=== PATIENT | male | born 2000 | race Caucasian/White ===

== ENCOUNTER 2022-05-31 01:36 | Emergency (ER) | payer OTHER, SELFPAY ==
[2022-05-31 01:37] VITALS: BP 144/79; PULSE 124; RESP 18; TEMP 37.3; O2SAT 100
[2022-05-31] MEDS: IBUPROFEN 400 MG TABLET 800 MG PO (02:20)
--- NOTE | 2022-05-31 02:29 | ED.URI ---
HPI - URI/Sore Throat General Chief Complaint: Upper Respiratory Infection Stated Complaint: sore throat Time Seen by Provider: 05/31/22 01:44 Source: patient Mode of arrival: ambulatory Limitations: no limitations History of Present Illness HPI Narrative: 21-year-old male presents today with history of sore throat and swelling noted this evening around 11:00. Patient denies any fevers, body aches, chills. Denies any sick contacts. Denies cough, runny nose. Patient able to drink fluids without issue. Denies any shortness of breath, difficulty swallowing or inability to swallow own saliva. Related Data Allergies Allergy/AdvReac Type Severity Reaction Status Date / Time fluticasone Allergy Unknown Anaphylactic Verified 03/31/18 13:11 Shock No Known Allergies Allergy Unknown Verified 03/31/18 13:11 Review of Systems Review of Systems: CONSTITUTIONAL: Denies fever, chills, or sweats. EYES: Denies visual changes, redness, or discharge. ENT: Sore throat, tonsil swelling. Denies rhinorrhea, congestion, or otalgia. CARDIOVASCULAR: Denies chest pain, palpitations, or edema. RESPIRATORY: Denies cough or dyspnea. GASTROINTESTINAL: Denies abdominal pain, nausea, vomiting, or diarrhea. . [facility] Social History Social History (Updated 05/31/22 @ 02:31 by Alicia Simons, [employer]) Smoking status: Current every day smoker Tobacco type: cigarettes Alcohol intake: current Substance use: current Substance use type: marijuana Exam Narrative: GENERAL: Well-appearing, well-nourished, and in no acute distress. HEAD: Normocephalic, atraumatic. EYES: PERRLA and EOMI. ENT: Nares clear, no rhinorrhea or epistaxis. Mucous membranes moist. Oropharynx tonsils +3 with exudate. Uvula midline without erythema or swelling. Bilateral TMs pearly mcgarry effusions noted NECK: Supple. No adenopathy or masses. CHEST: Clear to auscultation. No respiratory distress. No wheezes rales or rhonchi HEART: Regular rate and rhythm. No murmur heard. Normal peripheral pulses. Course Vital Signs Vital signs: Vital Signs Temperature 99.1 F 05/31/22 01:37 Pulse Rate 124 H 05/31/22 01:37 Respiratory Rate 18 05/31/22 01:37 Blood Pressure 144/79 H 05/31/22 01:37 Pulse Oximetry 100 05/31/22 01:37 Oxygen Delivery Room Air 05/31/22 01:37 Temperature 99.1 F 05/31/22 01:37 Pulse Rate 124 H 05/31/22 01:37 Respiratory Rate 18 05/31/22 01:37 Blood Pressure 144/79 H 05/31/22 01:37 Pulse Oximetry 99 05/31/22 02:33 Oxygen Delivery Room Air 05/31/22 02:33 MDM - URI/Sore Throat MDM Narrative Medical decision making narrative: 21-year-old male HPI as noted. Work-up to include COVID, influenza, RSV, strep swab. Patient medicated with dexamethasone for swelling of the tonsils and ibuprofen for pain. Encouraged to push fluids while awaiting test results. Patient positive for strep. Amoxicillin given. Improvement in heart rate after ibuprofen, dexamethasone, and fluids. Will discharge home plan follow-up if needed with primary. Discharged home with amoxicillin 500 mg twice a day for 10 days. Ibuprofen Tylenol for pain or fever. Differential Diagnosis Differential diagnosis: Likely upper respiratory infection, viral infection, bronchitis, influenza and pharyngitis Lab Data Labs: Lab Results 05/31/22 05/31/22 Range/Units 02:18 02:18 Influenza A (RT-PCR) Negative (Negative) Influenza B (RT-PCR) Negative (Negative) RSV (RT-PCR) Negative (Negative) SARS-CoV-2 RNA (RT-PCR) Negative Group A Strep (PCR) Detected A (Negative) Discharge Plan Discharge Clinical Impression: Strep pharyngitis Patient Disposition: Home, Self-Care Condition: Improved Instructions: Antibiotic Form, Strep Throat (ED) Additional Instructions: You were seen today in the emergency department and diagnosed with strep throat. Please take your antibiotics as prescribed. Tylenol or ibuprofen
[2022-05-31 02:33] VITALS: O2SAT 99
[2022-05-31 02:46] LABS: Strep Group A RT-PCR DETECTED (Negative)
[2022-05-31 03:04] LABS: Influenza A QL RT-PCR Negative (Negative); Influenza B QL RT-PCR Negative (Negative); RSV RNA, RT-PCR Negative (Negative); SARS-CoV-2 RNA PCR Negative
== END 2022-05-31 03:44 | disposition home or self-care (01) ==
PROVIDERS: Emergency Provider Nurse Practitioner Family
DX: J02.0 Streptococcal pharyngitis (principal); Z20.822 Contact with and (suspected) exposure to COVID-19; F17.210 Nicotine dependence, cigarettes, uncomplicated
CPT/HCPCS: 87637; 87651; 99283; A9270; J1100